=== PATIENT | female | born 1960 ===

== ENCOUNTER 2022-09-20 12:16 | Emergency (ER) | payer SELFPAY ==
[2022-09-20 12:18] VITALS: BP 139/91; PULSE 68; RESP 16; TEMP 36.6; O2SAT 98; BMI 41.9
--- NOTE | 2022-09-20 13:30 | ED.RN ---
180 staff arrived to give pt her bus ticket back to [place], pt not in waiting room or bathroom. This RN unable to locate pt. 180 staff state they have been working with pt.
== END 2022-09-20 13:30 | disposition left against medical advice (07) ==
LOC: ED 15:28
DX: F99 Mental disorder, not otherwise specified (principal)